=== PATIENT | male | born 1960 | race Caucasian/White ===

== ENCOUNTER 2024-12-18 06:37 | Day surgery (SDC) | payer BC, SELFPAY | END 2024-12-18 10:56 | disposition home or self-care (01) | LOC: GI 06:37 | PROVIDERS: ATTENDING PHYSICIAN Internal Medicine Gastroenterology | DX: Z12.11 Encounter for screening for malignant neoplasm of colon (principal); D12.2 Benign neoplasm of ascending colon; K57.30 Diverticulosis of large intestine without perforation or abscess without bleeding; K64.0 First degree hemorrhoids | CPT/HCPCS: 45380; 88305 ==